=== PATIENT | male | born 1995 ===

== ENCOUNTER → 2023-05-12 | Outpatient (CLI) | payer OTHER | END | disposition home or self-care (01) | LOC: LAB 09:31 | PROVIDERS: ATTEND Family Medicine | DX: T63.301A Toxic effect of unspecified spider venom, accidental (unintentional), initial encounter (principal); L02.414 Cutaneous abscess of left upper limb; X58.XXXA Exposure to other specified factors, initial encounter | CPT/HCPCS: 87077; 87186; 87205 ==